=== PATIENT | male | born 1955 | race Caucasian/White ===

== ENCOUNTER → 2017-09-30 | Outpatient (REF) | payer MEDICAID, OTHER ==
[2017-09-30 12:47] LABS: ESTIMATED AVERAGE GLUCOSE 140 MG/DL (60-110); HEMOGLOBIN A1c 6.5 %
[2017-09-30 13:39] LABS: ALBUMIN 4.1 GM/DL (3.2-5.2); ALBUMIN/GLOBULIN RATIO 1.11 (1.00-1.93); ALKALINE PHOSPHATASE 111 U/L (45-117); ALT/SGPT 35 U/L (12-78); ANION GAP 7 MEQ/L (8-16); AST/SGOT 20 U/L (7-37); BILIRUBIN,TOTAL 0.4 MG/DL (0.2-1.0); BLOOD UREA NITROGEN 14 MG/DL (7-18); CALCIUM LEVEL 8.5 MG/DL (8.8-10.2); CARBON DIOXIDE LEVEL 26 MEQ/L (21-32); CHLORIDE LEVEL 106 MEQ/L (98-107); CHOLESTEROL LEVEL 200 MG/DL (<200); CHOLESTEROL RISK RATIO 6.896 (<5); CREATININE FOR GFR 0.88 MG/DL (0.70-1.30); GLOMERULAR FILTRATION RATE > 60.0 (>49); GLUCOSE, FASTING 115 MG/DL (70-100); HDL CHOLESTEROL 29 MG/DL (>40); LDL CHOLESTEROL 127.2 MG/DL (<100); NON-HDL-C 171 MG/DL; POTASSIUM SERUM 4.4 MEQ/L (3.5-5.1); SODIUM LEVEL 139 MEQ/L (136-145); TOTAL PROTEIN 7.8 GM/DL (6.4-8.2); TRIGLYCERIDES LEVEL 219 MG/DL (<150)
== END ==
LOC: M LAB REF 11:58
DX: E11.9 Type 2 diabetes mellitus without complications (principal)
CPT/HCPCS: 80053

== ENCOUNTER → 2017-10-01 | Outpatient (CLI) | payer OTHER | LOC: M RAD 15:39 | DX: R09.89 Other specified symptoms and signs involving the circulatory and respiratory systems (principal) | CPT/HCPCS: 93880 ==

== ENCOUNTER 2018-03-31 10:57 | Inpatient (IN) | payer OTHER ==
[2018-03-31 12:15] LABS: BASO # 0.1 10^3/uL (0.0-0.2); BASO % 0.7 % (0.0-1.0); EOS # 0.3 10^3/uL (0.0-0.50); EOS % 3.2 % (0.0-3.0); HEMOGLOBIN 14.4 g/dl (13.5-17.5); IMMATURE GRANULOCYTE % 0.3 % (0-3.0); LYMPH # 2.6 10^3/uL (1.5-4.5); LYMPH % 27.3 % (24.0-44.0); MEAN CORPUSCULAR HEMOGLOBIN 32.5 pg (27.0-33.0); MEAN CORPUSCULAR HGB CONC 34.3 g/dl (32.0-36.5); MEAN CORPUSCULAR VOLUME 94.8 fl (80.0-96.0); MONO # 0.5 10^3/uL (0.0-0.8); MONO % 5.3 % (0.0-5.0); NEUTROPHILS % 63.2 % (36.0-66.0); PLATELET COUNT, AUTOMATED 140 10^3/uL (150-450); RED BLOOD COUNT 4.43 10^6/uL (4.30-6.10); RED CELL DISTRIBUTION WIDTH 12.8 % (11.5-14.5); WHITE BLOOD COUNT 9.4 10^3/uL (4.0-10.0)
[2018-03-31 12:24] LABS: INR 0.99; PROTHROMBIN TIME 13.2 SECONDS (12.1-14.4)
[2018-03-31 12:25] LABS: PARTIAL THROMBOPLASTIN TIME 28.8 SECONDS (25.4-37.6)
[2018-03-31 12:36] LABS: ANION GAP 7 MEQ/L (8-16); BLOOD UREA NITROGEN 11 MG/DL (7-18); CALCIUM LEVEL 8.6 MG/DL (8.8-10.2); CARBON DIOXIDE LEVEL 27 MEQ/L (21-32); CHLORIDE LEVEL 108 MEQ/L (98-107); CPK CREATINE PHOSPHOKINASE 72 U/L (39-308); CREATININE FOR GFR 0.85 MG/DL (0.70-1.30); GLOMERULAR FILTRATION RATE > 60.0 (>49); GLUCOSE, FASTING 136 MG/DL (70-100); POTASSIUM SERUM 3.5 MEQ/L (3.5-5.1); SODIUM LEVEL 142 MEQ/L (136-145); TROPONIN I < 0.02 NG/ML (< 0.10)
[2018-03-31 12:37] LABS: CK-MB VALUE MASS 1.4 NG/ML (<3.6); MB/CK RELATIVE INDEX 1.94 (< OR =4)
[2018-03-31 14:38] LABS: BEDSIDE GLUCOSE 136 MG/DL (80-115)
[2018-03-31] MEDS: ASPIRIN 325 MG TAB PO (16:46)
[2018-03-31] MEDS ORDERED: GLUCOSE 4 GM CHEW TABLET PO (17:45)
[2018-03-31] MEDS ORDERED: DEXTROSE 50% 50 ML SYRINGE IV (17:45)
[2018-03-31] MEDS ORDERED: GLUCAGON FOR INJ 1 MG VIAL (J1610) SC (17:45)
[2018-03-31] MEDS: HumaLOG INSULIN (NovoLOG) PER UNIT SC (21:00)
[2018-03-31 21:09] LABS: BEDSIDE GLUCOSE 170 MG/DL (80-115)
[2018-03-31] MEDS: LEVEMIR (INSULIN DETEMIR) 1 UNITS/0.01ML SC (21:13)
[2018-03-31] MEDS: NAPROXEN 250 MG TAB PO (21:13)
[2018-03-31] MEDS: ATORVASTATIN 20 MG TAB PO (21:13)
[2018-04-01 06:52] LABS: BEDSIDE GLUCOSE 113 MG/DL (80-115)
[2018-04-01 07:24] LABS: HEMATOCRIT 43.4 % (42.0-52.0); HEMOGLOBIN 14.9 g/dl (13.5-17.5); MEAN CORPUSCULAR HEMOGLOBIN 33.1 pg (27.0-33.0); MEAN CORPUSCULAR HGB CONC 34.3 g/dl (32.0-36.5); MEAN CORPUSCULAR VOLUME 96.4 fl (80.0-96.0); PLATELET COUNT, AUTOMATED 135 10^3/uL (150-450); RED CELL DISTRIBUTION WIDTH 12.9 % (11.5-14.5); WHITE BLOOD COUNT 7.8 10^3/uL (4.0-10.0)
[2018-04-01 07:37] LABS: ESTIMATED AVERAGE GLUCOSE 143 MG/DL (60-110); HEMOGLOBIN A1c 6.6 %
[2018-04-01 07:50] LABS: ALBUMIN 3.4 GM/DL (3.2-5.2); ALBUMIN/GLOBULIN RATIO 0.94 (1.00-1.93); ALKALINE PHOSPHATASE 105 U/L (45-117); ALT/SGPT 30 U/L (12-78); ANION GAP 5 MEQ/L (8-16); AST/SGOT 16 U/L (7-37); BILIRUBIN,TOTAL 0.5 MG/DL (0.2-1.0); BLOOD UREA NITROGEN 14 MG/DL (7-18); CALCIUM LEVEL 8.4 MG/DL (8.8-10.2); CARBON DIOXIDE LEVEL 26 MEQ/L (21-32); CHLORIDE LEVEL 111 MEQ/L (98-107); CHOLESTEROL LEVEL 111 MG/DL (<200); CHOLESTEROL RISK RATIO 4.111 (<5); CREATININE FOR GFR 0.79 MG/DL (0.70-1.30); GLOMERULAR FILTRATION RATE > 60.0 (>49); GLUCOSE, FASTING 114 MG/DL (70-100); HDL CHOLESTEROL 27 MG/DL (>40); LDL CHOLESTEROL 51.8 MG/DL (<100); MAGNESIUM LEVEL 2.3 MG/DL (1.8-2.4); NON-HDL-C 84 MG/DL; POTASSIUM SERUM 3.9 MEQ/L (3.5-5.1); SODIUM LEVEL 142 MEQ/L (136-145); THYROID STIMULATING HORMONE 0.906 uIU/ML (0.358-3.740); TRIGLYCERIDES LEVEL 161 MG/DL (<150)
[2018-04-01] MEDS: NICOTINE 14 MG/24 HR TRANSDERMAL TD (08:16)
[2018-04-01] MEDS: HumaLOG INSULIN (NovoLOG) PER UNIT SC ×2 (08:16→12:00)
[2018-04-01] MEDS: ENOXAPARIN 40 MG/0.4 ML SYRINGE (J1650) SC (08:16)
[2018-04-01] MEDS: ASPIRIN 325 MG TAB PO (08:17)
[2018-04-01 10:25] LABS: HEPATITIS C VIRUS ABY INDEX 0.1 INDEX (<0.8)
[2018-04-01 12:04] LABS: BEDSIDE GLUCOSE 113 MG/DL (80-115)
[2018-04-01] MEDS ORDERED: ATORVASTATIN 20 MG TAB PO (21:00)
== END 2018-04-01 16:49 | disposition left against medical advice (07) | DRG 45 ==
LOC: M ED 10:57 → M ED INP 17:36
DX: I63.9 Cerebral infarction, unspecified (principal); E11.51 Type 2 diabetes mellitus with diabetic peripheral angiopathy without gangrene; F17.210 Nicotine dependence, cigarettes, uncomplicated; Z79.82 Long term (current) use of aspirin; Z79.4 Long term (current) use of insulin; Z88.0 Allergy status to penicillin; Z91.013 Allergy to seafood

== ENCOUNTER → 2018-04-06 | Outpatient (REF) | payer OTHER ==
[2018-04-06 18:57] LABS: ESTIMATED AVERAGE GLUCOSE 137 MG/DL (60-110); HEMOGLOBIN A1c 6.4 %
== END ==
LOC: M LAB REF 16:47
DX: E11.9 Type 2 diabetes mellitus without complications (principal)

== ENCOUNTER → 2018-11-08 | Outpatient (REF) | payer OTHER ==
[~2018-11-08] MED LIST: /QUET10TA OR; ASPI81TA3 PO; BUSP10TA2 OR; CRES20TA OR; INSULIN 70/30 SC; LISI5TAB OR; NOVO1INJ4 SC; PAXI10TA OR; PAXI30TA OR; TRAZ100T OR; januvia PO; levemir flexpen SUBQ
[2018-11-08 18:09] LABS: BASO # 0.1 10^3/uL (0.0-0.2); BASO % 0.9 % (0.0-1.0); EOS # 0.3 10^3/uL (0.0-0.50); EOS % 4.3 % (0.0-3.0); HEMATOCRIT 43.7 % (42.0-52.0); HEMOGLOBIN 14.8 g/dl (13.5-17.5); LYMPH # 2.4 10^3/uL (1.5-4.5); LYMPH % 36.3 % (24.0-44.0); MEAN CORPUSCULAR HGB CONC 33.9 g/dl (32.0-36.5); MEAN CORPUSCULAR VOLUME 97.5 fl (80.0-96.0); MONO # 0.4 10^3/uL (0.0-0.8); MONO % 6.6 % (0.0-5.0); NEUTROPHILS # 3.3 10^3/uL (1.8-7.7); NEUTROPHILS % 51.4 % (36.0-66.0); PLATELET COUNT, AUTOMATED 140 10^3/uL (150-450); RED BLOOD COUNT 4.48 10^6/uL (4.30-6.10); WHITE BLOOD COUNT 6.5 10^3/uL (4.0-10.0)
[2018-11-08 18:26] LABS: ALBUMIN 3.9 GM/DL (3.2-5.2); ALT/SGPT 58 U/L (12-78); BILIRUBIN,TOTAL 0.5 MG/DL (0.2-1.0); BLOOD UREA NITROGEN 8 MG/DL (7-18); CALCIUM LEVEL 8.8 MG/DL (8.8-10.2); CARBON DIOXIDE LEVEL 26 MEQ/L (21-32); CHLORIDE LEVEL 101 MEQ/L (98-107); CHOLESTEROL LEVEL 224 MG/DL (<200); CHOLESTEROL RISK RATIO 10.181 (<5); CREATININE FOR GFR 0.97 MG/DL (0.70-1.30); GLOMERULAR FILTRATION RATE > 60.0 (>49); GLUCOSE, FASTING 307 MG/DL (70-100); HDL CHOLESTEROL 22 MG/DL (>40); NON-HDL-C 202 MG/DL; POTASSIUM SERUM 4.1 MEQ/L (3.5-5.1); SODIUM LEVEL 135 MEQ/L (136-145); TOTAL PROTEIN 7.3 GM/DL (6.4-8.2); TRIGLYCERIDES LEVEL 451 MG/DL (<150)
[2018-11-08 18:27] LABS: TOTAL 25(OH) VITAMIN D 9.2 NG/ML (30.0-100.0)
[2018-11-08 18:55] LABS: HEMOGLOBIN A1c 8.1 %
== END ==
LOC: M LAB REF 17:08
PROVIDERS: ATTEND Nurse Practitioner Family
DX: E11.69 Type 2 diabetes mellitus with other specified complication (principal); E11.9 Type 2 diabetes mellitus without complications; Z13.9 Encounter for screening, unspecified; I10 Essential (primary) hypertension

== ENCOUNTER 2019-06-14 16:51 | Inpatient (IN) | payer MEDICARE, MEDICAID ==
[~2019-06-14] VITALS: Ht 172.7 cm; Wt 76.3 kg
[~2019-06-14 16:51] MED LIST changes: -/QUET10TA OR; +SERO1TAB OR
[2019-06-14] MEDS ORDERED: GABA-1171 PO (17:09)
[2019-06-14] MEDS ORDERED: TOPI25TA10 PO (17:09)
[2019-06-14] MEDS ORDERED: METF500T13 PO (17:09)
[2019-06-14] MEDS ORDERED: ACET-683 PO (17:09)
[2019-06-14] MEDS ORDERED: ATOR80TA59 PO (17:09)
--- NOTE | 2019-06-14 17:37 | REPVR ---
PROCEDURE INFORMATION: Exam: CT Head Without Contrast Exam date and time: 06/14/2019 5:25 PM Clinical history: 64 years old, male; Weakness, facial; Additional info: Left sided weakness TECHNIQUE: Imaging protocol: Computed tomography of the head without contrast. Radiation optimization: All CT scans at this facility use at least one of these dose optimization techniques: automated exposure control; mA and/or kV adjustment per patient size (includes targeted exams where dose is matched to clinical indication); or iterative reconstruction. COMPARISON: CT Head without contrast 03/31/2018 11:15 AM FINDINGS: Brain: Nonspecific hypodensities of the periventricular and deep subcortical white matter, most likely secondary to chronic small vessel ischemic change. No intracranial hemorrhage or extra-axial fluid collection. No evidence of mass effect or midline shift. Bernal-white matter differentiation is normal. Ventricles: Prominence of the ventricles and sulci, most likely attributed to parenchymal volume loss. Bones/joints: No acute osseus lesion or fracture. Sinuses: Unremarkable as visualized. Mastoid air cells: Unremarkable. Soft tissues: Unremarkable. IMPRESSION: 1. No acute intracranial pathology. ASPECTS score 10. 2. Other chronic findings, as above. Electronically signed by: Jaleel Kendrick On 06/14/2019 17:37:02 PM
[2019-06-14 18:32] LABS: BASO # 0.1 10^3/uL (0.0-0.2); BASO % 0.6 % (0.0-1.0); EOS # 0.2 10^3/uL (0.0-0.5); EOS % 2.9 % (0.0-3.0); HEMATOCRIT 44.8 % (42.0-52.0); HEMOGLOBIN 15.3 g/dl (13.5-17.5); LYMPH # 2.9 10^3/uL (1.5-5.0); LYMPH % 34.3 % (24.0-44.0); MEAN CORPUSCULAR HEMOGLOBIN 32.3 pg (27.0-33.0); MEAN CORPUSCULAR HGB CONC 34.2 g/dl (32.0-36.5); MEAN CORPUSCULAR VOLUME 94.7 fl (80.0-96.0); MONO # 0.5 10^3/uL (0.0-0.8); MONO % 5.8 % (0.0-5.0); NEUTROPHILS # 4.6 10^3/uL (1.5-8.5); NEUTROPHILS % 55.9 % (36.0-66.0); PLATELET COUNT, AUTOMATED 128 10^3/uL (150-450); RED BLOOD COUNT 4.73 10^6/uL (4.30-6.10); WHITE BLOOD COUNT 8.3 10^3/uL (4.0-10.0)
[2019-06-14 18:41] LABS: INR 1.01
[2019-06-14 18:42] LABS: PARTIAL THROMBOPLASTIN TIME 27.8 SECONDS (25.0-38.4)
[2019-06-14] MEDS ORDERED: ANTIBIOTIC (18:43)
[2019-06-14] MEDS ORDERED: ECOT81TA5 PO (18:43)
[2019-06-14 18:53] LABS: BLOOD UREA NITROGEN 20 MG/DL (7-18); CARBON DIOXIDE LEVEL 25 MEQ/L (21-32); CHLORIDE LEVEL 103 MEQ/L (98-107); CREATININE FOR GFR 1.01 MG/DL (0.70-1.30); GLOMERULAR FILTRATION RATE > 60.0 (>49); GLUCOSE, FASTING 331 MG/DL (70-100); POTASSIUM SERUM 3.9 MEQ/L (3.5-5.1); SODIUM LEVEL 134 MEQ/L (136-145)
[2019-06-14 18:59] LABS: HEMOGLOBIN A1c 9.3 %
--- NOTE | 2019-06-14 19:02 | REP ---
Chest x-ray: Portable single view. History: CVA. Comparison chest x-ray: March 31, 2018. Findings: The lungs are well inflated and clear. Pleural angles are sharp. Heart size is normal. There is a granulomatous calcification in the right upper lobe. Impression: No active disease. Electronically Signed by Mikey Sykes MD 06/14/2019 06:53 P
[2019-06-14] MEDS ORDERED: ACETAMINOPHEN TAB 650MG DOSE (2X325MG) PO PRN (19:15)
[2019-06-14 19:53] LABS: CHOLESTEROL LEVEL 164 MG/DL (<200); CHOLESTEROL RISK RATIO 7.454 (<5); HDL CHOLESTEROL 22 MG/DL (>40); NON-HDL-C 142 MG/DL; TRIGLYCERIDES LEVEL 612 MG/DL (<150)
--- NOTE | 2019-06-14 20:34 | REPVR ---
PROCEDURE INFORMATION: Exam: MR Head Without Contrast Exam date and time: 06/14/2019 8:23 PM Clinical history: 64 years old, male; Weakness, extremity; Patient HX: Numbness in the left side, PT personal HX of prior strokes; Additional info: CVA TECHNIQUE: Imaging protocol: MR of the head without contrast. COMPARISON: MRI-Brain without Contrast 03/31/2018 2:47 PM FINDINGS: Brain: Small focus of restricted diffusion with associated FLAIR hyperintensity within the right superior frontoparietal region. Nonspecific T2/FLAIR hyperintensities of the periventricular and deep subcortical white matter, most likely secondary to chronic small vessel ischemic change. No intracranial hemorrhage or extra-axial fluid collection. No evidence of mass effect or midline shift. Ventricles: Prominence of the ventricles and sulci, likely attributed to parenchymal volume loss. Bones/joints: Unremarkable. Soft tissues: Unremarkable. Sinuses: Unremarkable. Mastoid air cells: Chronic partial opacification of inferior right mastoid air cells. Orbits: Unremarkable. IMPRESSION: 1. Small focus of restricted diffusion with associated FLAIR hyperintensity within the right superior frontoparietal region, concerning for acute to early subacute infarct 2. Other chronic findings, as above. Electronically signed by: Jaleel Kendrick On 06/14/2019 20:34:16 PM
[2019-06-14] MEDS ORDERED: GLUCOSE 4 GM CHEW TABLET PO PRN (21:00)
[2019-06-14] MEDS ORDERED: DEXTROSE 50% 50 ML SYRINGE IV PRN (21:00)
[2019-06-14] MEDS ORDERED: CLOPIDOGREL 75 MG TAB PO ONE (21:00)
[2019-06-14] MEDS: VARENICLINE 1 MG TABLET PO SCH (21:00)
[2019-06-14] MEDS ORDERED: GLUCAGON FOR INJ 1 MG VIAL (J1610) SC PRN (21:00)
[2019-06-14] MEDS: HumaLOG INSULIN (NovoLOG) PER UNIT SC SCH (21:37)
[2019-06-14] MEDS ORDERED: NICOTINE POLACRILEX 2 MG GUM PO ONE (21:45)
[2019-06-14] MEDS ORDERED: NICOTINE POLACRILEX 2 MG GUM PO PRN (21:45)
[2019-06-14] MEDS ORDERED: CALCIUM CARBONATE 500 MG CHEW U/D PO PRN (21:45)
[2019-06-14] MEDS ORDERED: CALCIUM CARBONATE 500 MG CHEW U/D PO ONE (21:45)
[2019-06-14 21:54] VITALS: BP 148/81
[2019-06-14] MEDS ORDERED: ATORVASTATIN 20 MG TAB PO ONE (22:15)
[2019-06-14] MEDS: NICOTINE 21MG/24HR 1 EA TRANSDERMAL TD SCH (22:23)
[2019-06-14] MEDS: LEVEMIR (INSULIN DETEMIR) 1 UNITS/0.01ML SC SCH (22:30)
[2019-06-15] VITALS (7 sets, daily range): BP systolic 120–158; BP diastolic 56–92
[2019-06-15 00:40] LABS: BLOOD UREA NITROGEN 19 MG/DL (7-18); CARBON DIOXIDE LEVEL 25 MEQ/L (21-32); CHLORIDE LEVEL 103 MEQ/L (98-107); CREATININE FOR GFR 0.93 MG/DL (0.70-1.30); GLOMERULAR FILTRATION RATE > 60.0 (>49); GLUCOSE, FASTING 188 MG/DL (70-100); POTASSIUM SERUM 3.7 MEQ/L (3.5-5.1); SODIUM LEVEL 135 MEQ/L (136-145)
[2019-06-15] MEDS: D5W/0.45% SODIUM CHLORIDE 1,000 ML IV SCH ×2 (01:11→15:20)
--- NOTE | 2019-06-15 06:05 | HPE ---
DATE OF ADMISSION: 06/14/2019 CHIEF COMPLAINT: Left leg numbness and weakness. PRIMARY CARE PHYSICIAN: [facility], Dr. Luo. HISTORY OF PRESENT ILLNESS (HPI): This is a 64-year-old active smoker with 90 pack year history of smoking, still smoking two packs a day, hypertension, diabetes, previous right parietal lobe cerebral vascular accident (CVA) noncompliant with his aspirin and Lipitor for the past two weeks since he ran out of medications and had been noncompliant with his neurology appointment presents to the emergency room with a two day history of left lower extremity weakness. The patient woke up feeling that his left leg was very heavy and he was dragging it to go to the bathroom. He ignored it and decided to sleep it off. It progressed on to now involve the left arm which often dropped, unable to lift it independently. He also noticed significant numbness of the left side. He is right handed by nature and was still able to do activities of daily living (ADLs), bathe himself, get dressed and walk without any assistance hoping to have everything go away. He has been sleeping a lot for the past two days and noticed that this has not gotten better. Today he noted that the left arm was quite numb. He called out to his girlfriend who then helped him come to the emergency room. The patient has not been taking his aspirin for the past two weeks since his medications had run out. No medications were taken at home. He otherwise did not have any facial drooping. According to the girlfriend his speech was normal. He is able to understand but at times would look at her for a few minutes and ask her what. Sine the previous stroke the patient states that his memory has not been the same, he is often times forgetful. He has forgotten his neurology appointment and was unable to followup at [facility] from the previous strokes. He does have a history of central canal stenosis in the L2-3, L3-4 area but denies any shooting pain at this time. He denies any usual weakness of that leg and has been noting his left leg dragging only for the past two days. In the emergency room (ER) he was given aspirin. CT of the head was negative. EKG shows sinus rhythm. MRI of the brain shows a right frontoparietal acute to early subacute infarct. The patient was given aspirin, Plavix and Lipitor. The patient otherwise denies any fever or chills, changes in appetite, blurred vision, changes in vision. He has had some difficulty understanding at times and has had some memory issues. He denies any rhinorrhea, vertigo. He denies any sore throat, complains of a little bit of reflux and some heartburn. No chest pain, pressure, tightness, lightheadedness, palpitations or dizziness. He denies any nausea or vomiting, abdominal pain. Denies any dysuria, urgency or frequency. No prior history of anxiety or depression. The patient is being admitted for a right acute frontoparietal CVA. PAST MEDICAL HISTORY: 1. Diabetes. 2. Hypertension. 3. Hypercholesterolemia. 4. Right parietal CVA with memory issues. 5. Active tobacco abuse. 6. Diabetic neuropathy. PAST SURGICAL HISTORY: Back surgery. HOME MEDICATIONS: The patient has not taken medications for the past two weeks. - aspirin 81 mg daily - metformin 500 mg twice a day - Tylenol 1000 mg every 6 hours as needed for pain or fever - Lipitor 80 mg daily - gabapentin 100 mg daily ALLERGIES: PENICILLIN and SHELLFISH causing rash. SOCIAL HISTORY: Has a significant other who is a health care proxy. He is FULL CODE. Trial of intubation and cardiopulmonary resuscitation (CPR). The patient continues to smoke cigarettes, previously smoked three packs per day for about 30 years, down to two packs a day now. He denies any alcohol use. He uses marijuana daily. FAMILY HISTORY: Both parents are . No history of hypertension, diabetes, hypercholesterolemia, heart disease or strokes. No clotting disorders in the family. The patient is currently on disability. REVIEW OF SYSTEMS: As per HPI, 12-point system otherwise negative. PHYSICAL EXAMINATION: VITAL SIGNS: Temperature 98.5, pulse 88, respiratory 16, blood pressure 197/86, 95% on room air. GENERAL: The patient person, place and time answering questions appropriately. HEENT: Face is symmetric, no facial drooping. Pupils equal, round, and reactive to light, extraocular muscles are intact. Language comprehension, repetition are intact. Tongue is midline. No pronator drift. No facial asymmetry. EXTREMITIES: The patient has 5/5 strength bilaterally upper and lower extremities. The patient has no sensory disturbance at this time but he states that on arrival to the ER he had significant numbness of the left arm and two days ago he had significant weakness of the left side. Vcmtrx-kz-kghi testing has no dysmetria, Deep tendon reflexes (DTRs) are intact with slight increase in the left arm and lower extremity. Right has negative Babinski, left has positive Babinski. EKG: Sinus rhythm. LABORATORY DATA: White count 8.3, hemoglobin 50, hematocrit 44, platelet count 128. Sodium 134, potassium 3.9, chloride 103, bicarbonate 25, BUN 20, creatinine 1.01, glucose 331, A1c 9.3, glucose 220, calcium 9, triglycerides 612, total cholesterol 164, HDL 142. INR 1.01. IMAGING STUDIES: CT of the head 06/14/2019: No acute intracranial pathology, other chronic findings. MRI of the brain shows small focus of restricted effusion with associated flare hyperintensity within the right superior frontoparietal region. Small focus concerning for acute to early subacute infarct, other chronic findings. Chronic partial opacification of the inferior right mastoid air cells. No evidence of mass effect or midline shift. Chest x-ray: No active disease. ASSESSMENT AND PLAN: This is a 64-year-old noncompliant patient who continues to smoke cigarettes, missed appointments with neurology followup for previous cerebral vascular accident (CVA), has not taken his medications for two weeks with diabetes, hypercholesterolemia, hypertension, right parietal CVA in the past, actively smoking, presents to the emergency room with a two day history of left lower extremity weakness, dragging his feet at home and new left arm numbness today prompting him to come to the emergency room (ER). He was found to have an early acute or subacute right frontal parietal CVA and admitted for further evaluation and treatment for two midnights as an inpatient. 1. Acute right frontoparietal CVA. The patient will be admitted to the telemetry unit. Neurology-checks every four hourly. He has been given aspirin 81 mg and Plavix 75 mg this evening as well as Lipitor 80 mg. A lipid panel has been reviewed. Per Dr. Banks the patient should proceed with transesophageal echocardiogram with bubble study and a hypercoagulable evaluation. Tobacco cessation counseling has been provided at the bedside. The patient agrees to nicotine replacement therapy and will be given Chantix nicotine patch and nicotine gum. Dr. Dejesus has been contacted to schedule the transesophageal echocardiogram which will be done tomorrow. He is to be kept nothing by mouth (NPO) after midnight with medications only, with sips of water. Defer to Dr. Banks whether we should repeat carotid Dopplers. He had these done previously which showed 15-49% blockage. We will also permit blood pressure for the next 48 hours to be at 140-180 and then will be normalized to 120 subsequently. MRA of the head and neck will be performed as well and neuro-checks overnight. 2. Uncontrolled hypertension. Permissive hypertension for the fist 48 hours of his acute CVA with pressure goal of 140-180 in the next 24-48 hours and then subsequently normalize to 120 after 48 hours due to the decreased risk of extending the infarct. If negative findings on transesophageal echocardiogram, patient may benefit from implantable loop recorder and referral to cardiology, Dr. Dejesus regarding cryptogenic stroke to a loud atrial fibrillation, atrial flutter as an outpatient. 3. Active smoking with history of 90-pack year smoking. Tobacco cessation counseling has been provided at the bedside. Active plan would be to have his significant other go into home and throw away all cigarettes both in his car and in his residence. He is to call his significant other if he feels that he will buy cigarettes. A pill box will be provided for him to continue his nicotine gum as needed at home and Chantix. 4. Dyslipidemia. Continue with Lipitor. Check lipid panel and liver function tests. Monitor for myalgias. 5. Deep venous thrombosis (DVT) prophylaxis with Lovenox. 6. Diet: No added salt. Consistent carbohydrate diet. The patient is placed on Levemir insulin during the hospital stay. Hyperglycemic protocol and finger sticks. Check A1c in the morning. CODE STATUS: The patient is a FULL CODE. He would like cardiopulmonary resuscitation (CPR)and a trial of intubation. Health care proxy has been designated as his significant other. BECKY
--- NOTE | 2019-06-15 06:59 | ECGEPIP ---
[facility] - ED Test Date: 2019-06-14 Pat Name: HAJA KEEN Department: Room: [place] [address] Gender: Male Lead Sales Consultant: TC : 1955 Requested By: Julian Polk Order Number: [id number] Reading MD: Paula Singleton Measurements Intervals [place] Rate: 67 P: 65 MI: 203 QRS: -42 QRSD: 98 T: 46 QT: 367 QTc: 390 Interpretive Statements SINUS RHYTHM MARKED LEFT AXIS DEVIATION POSSIBLE RIGHT VENTRICULAR CONDUCTION DELAY NSTTW abnormalities SIMILAR 03/31/18 Electronically Signed on 06-15-2019 6:58:50 EDT by Paula Singleton
[2019-06-15 07:11] LABS: HEMOGLOBIN A1c 9.2 %
[2019-06-15 07:21] LABS: ALBUMIN 3.9 GM/DL (3.2-5.2); BILIRUBIN,DIRECT 0.1 MG/DL (0.0-0.2); BILIRUBIN,TOTAL 0.6 MG/DL (0.2-1.0); TOTAL PROTEIN 7.7 GM/DL (6.4-8.2)
[2019-06-15] MEDS: HumaLOG INSULIN (NovoLOG) PER UNIT SC SCH ×4 (07:30→20:56)
[2019-06-15] MEDS ORDERED: PROHANCE 279.3MG/ML 15ML VIAL (A9576) As Ordered ONE (08:47)
[2019-06-15] MEDS ORDERED: ENOXAPARIN 40 MG/0.4 ML SYRINGE (J1650) SC SCH (09:00)
[2019-06-15] MEDS ORDERED: GABAPENTIN 100 MG CAP PO SCH (09:00)
[2019-06-15] MEDS ORDERED: CLOPIDOGREL 75 MG TAB PO SCH (09:00)
[2019-06-15] MEDS ORDERED: ATORVASTATIN 20 MG TAB PO SCH (09:00)
--- NOTE | 2019-06-15 09:44 | REP ---
Intracranial MRA: 06/15/2019. Indication: Stroke. Comparison: None. Technique: Axial 3-D [id number] imaging of the intracranial circulation was performed with rotational 3-D images provided. Findings: There is no intracranial high-grade stenosis or vessel occlusion. There is moderate narrowing of the right cavernous ICA. There is no aneurysm or AVM. Impression: No intracranial high-grade stenosis or vessel occlusion. Moderate atherosclerotic narrowing of the right cavernous ICA. Electronically Signed by Kike Enriquez DO 06/15/2019 09:36 A
--- NOTE | 2019-06-15 10:42 | REP ---
Extracranial MRA: 06/15/2019. Indication: Stroke. Comparison: None. Technique: 2-D [id number] imaging of the extracranial carotid and vertebral arteries were performed. Findings: There is hemodynamically significant high-grade stenosis of the proximal right ICA just beyond the bifurcation according to NASCET criteria with the stenosis greater than 90%. There is no hemodynamically significant left ICA stenosis by NASCET criteria. There is moderate narrowing of the proximal left ICA just beyond the bifurcation with the stenosis measuring approximately 40%. The vertebral arteries are patent. The great vessels originate in expected anatomic fashion from the aortic arch. Impression: Hemodynamically significant proximal right ICA stenosis by NASCET criteria. No hemodynamically significant left ICA stenosis. Electronically Signed by Kike Enriquez DO 06/15/2019 10:34 A
--- NOTE | 2019-06-15 10:48 | IPNPDOC ---
Subjective Date Seen The patient was seen on 06/15/19. Subjective Chief Complaint/HPI Patient comfortable, in no apparent distress. Offers no new complaints General: Denies: ROS Unobtainable, Chills, Night Sweats, Fatigue, Malaise, Normal Appetite, Other Symptoms Constitutional: Denies: Chills, Fever, Malaise, Night Sweats, Weakness, Fatigue, Weight Loss, Lethargy, Other Eyes: Denies: Pain, Vision change, Conjunctivae inflammation, Eyelid inflammation, Redness, Other ENT: Denies: Head Aches, Ear Pain, Dysphagia, Sinus Congestion, Post Nasal Drip, Sore Throat, Epistaxis, Other Symptoms Skin: Denies: Rash, Lesions, Jaundice, Bruising, Itching, Dry, Breakdown, Nail Changes, Other Pulmonary: Denies: Dyspnea, Cough, Pleuritic Chest Pain, Other Symptoms Cardiovascular: Denies: Chest Pain, Palpitations, Orthopnea, Paroxysmal Noc. Dyspnea, Edema, Lt Headedness, Other Symptoms Gastrointestinal: Denies: Nausea, Vomiting, Abdominal Pain, Diarrhea, Con stipation, Melena, Hematochezia, Other Symptoms Musculoskeletal: Denies: Neck Pain, Back Pain, Shoulder Pain, Arm Pain, Hand Pain, Leg Pain, Foot Pain, Joint Pain, Muscle Pain, Spasms, Other Symptoms Neurological: Denies: Weakness, Numbness, Incoordination, Change in speech, Confusion, Seizures, Other Symptoms Objective Physical Examination General Exam: Positive: Alert, Cooperative Eye Exam: Positive: PERRLA, Conjunctiva & lids normal ENT Exam: Positive: Atraumatic, Mucous membr. moist/pink Neck Exam: Positive: Supple Chest Exam: Positive: Clear to auscultation, Normal air movement Heart Exam: Positive: Rate Normal, Normal S1, Normal S2 Abdomen Exam: Positive: Normal bowel sounds, Soft Extremity Exam: Positive: Normal pulses Skin Exam: Positive: Nl turgor and temperature Assessment /Plan Problems (1) CVA (cerebral vascular accident) Status: Acute Problem Text: Acute right frontoparietal CVA Neurology check every 4 hours Continue telemetry Continue aspirin 81 mg by mouth daily and Plavix 75 mg by mouth daily Continue Lipitor 80 mg by mouth daily Scheduled for SARA today MRI of the neck and brain done, report pending Neurology consult with Dr. Banks pending (2) Uncontrolled hypertension Status: Acute Problem Text: Uncontrolled hypertension Will keep systolic blood pressure between 140-180 48 hours Then we will adjust the medication dose to bring it within normal range Further cardiac workup as an outpatient with (3) Smoker Status: Chronic Problem Text: Active smoking with history of 90-pack year smoking. Tobacco cessation counseling has been provided at the bedside. Active plan would be to have his significant other go into home and throw away all cigarettes both in his car and in his residence. He is to call his significant other if he feels that he will buy cigarettes. A pill box will be provided for him to continue his nicotine gum as needed at home and Chantix. (4) Hyperlipemia Status: Chronic Problem Text: Continue Lipitor as per orders Plan/VTE VTE Prophylaxis Ordered?: Yes VS, I&O, 24H, Fishbone Vital Signs/I&O Vital Signs Date Time Temp Pulse Resp B/P (MAP) Pulse Ox O2 Delivery O2 Flow Rate FiO2 06/15/19 08:00 98.0 84 20 135/88 (104) 97 Room Air I&O- Last 24 Hours up to 6 AM 06/15/19 06:00 Intake Total 735 ml Output Total 550 ml Balance 185 ml Laboratory Data 24H LABS Laboratory Tests 2 06/14/19 17:39: Estimated Mean Plasma Glucose 220H, Hemoglobin A1c 9.3 06/14/19 18:09: Immature Granulocyte % (Auto) 0.5, Neutrophils (%) (Auto) 55.9, Lymphocytes (%) (Auto) 34.3, Monocytes (%) (Auto) 5.8H, Eosinophils (%) (Auto) 2.9, Basophils (%) (Auto) 0.6, Neutrophils # (Auto) 4.6, Lymphocytes # (Auto) 2.9, Monocytes # (Auto) 0.5, Eosinophils # (Auto) 0.2, Basophils # (Auto) 0.1, Nucleated Red Blood Cells % (auto) 0.0, Prothrombin Time 13.0, Prothromb Time International Ratio 1.01, Activated Partial Thromboplast Time 27.8, Anion Gap 6L, Glomerular Filtration Rate > 60.0, Calcium Level 9.0, Magnesium Level 2.0, Triglycerides Level 612H, Total Cholesterol 164, LDL Cholesterol , Non-HDL Cholesterol (LDL + VLDL) 142, Total HDL Cholesterol 22L, Cholesterol/HDL Ratio 7.454H, Thyroid Stimulating Hormone (TSH) 3.620 06/14/19 21:12: Bedside Glucose (Misc Panel) 247H 06/14/19 22:28: Bedside Glucose (Misc Panel) 238H 06/14/19 23:57: Anion Gap 7L, Glomerular Filtration Rate > 60.0, Calcium Level 9.0 06/15/19 01:08: Bedside Glucose (Misc Panel) 187H 06/15/19 06:01: Erythrocyte Sedimentation Rate 6, Estimated Mean Plasma Glucose 217H, Hemoglobin A1c 9.2, Total Bilirubin 0.6, Direct Bilirubin 0.1, Aspartate Amino Transf (AST/SGOT) 25, Alanine Aminotransferase (ALT/SGPT) 34, Alkaline Phosphatase 153H, Total Protein 7.7, Albumin 3.9, Albumin/Globulin Ratio 1.03, Rheumatoid Factor < 10.0 CBC/BMP Laboratory Tests 06/14/19 18:09 06/14/19 23:57 ANAMIKA BRAUN MD Jun 15, 2019 10:47
[2019-06-15] MEDS: VARENICLINE 1 MG TABLET PO SCH (10:50)
[2019-06-15] MEDS ORDERED: MIDAZOLAM INJ 2 MG/2 ML VIAL (J2250) As Ordered ONE (14:42)
--- NOTE | 2019-06-15 16:53 | ECGEPIP ---
[facility] Test Date: 2019-06-14 Pat Name: HAJA KEEN Department: Room: [place] [address] Gender: Male Homeopathic Doctor: ESTEPHANIA : 1955 Requested By: MEMO DAMON Order Number: [id number] Reading MD: Zeb Dejesus Measurements Intervals [place] Rate: 72 P: 64 MN: 214 QRS: -42 QRSD: 91 T: 50 QT: 361 QTc: 396 Interpretive Statements SINUS RHYTHM WITH FIRST DEGREE AV BLOCK MARKED LEFT AXIS DEVIATION No significant change compared with 06/14/2019 at 1847 hrs. Electronically Signed on 06-15-2019 16:53:49 EDT by Zeb Dejesus
--- NOTE | 2019-06-15 17:46 | T-ECHO ---
DATE OF PROCEDURE: 06/15/2019 REFERRING PHYSICIAN: Dr. Es Spears INDICATION: Acute stroke. PREPROCEDURE DIAGNOSIS: Acute stroke. POSTPROCEDURE DIAGNOSIS: Acute stroke, patent foramen ovale. FINDINGS: Patent foramen ovale with positive bubble study. PROCEDURE PERFORMED BY: Zeb Dejesus MD COLD WATER MACHINE OPERATOR: None. INTRAVENOUS (IV) SEDATION: Midazolam 3 mg IV. COMPLICATIONS: None. DESCRIPTION OF PROCEDURE: Procedure description: Rhythm was sinus. Patient received topical Cetacaine spray to the back of the pharynx. He received a total of 3 mg of Midazolam IV for IV sedation. Patient tolerated the procedure well without any immediate complications. Esophageal intubation was accomplished without difficulty using a Ralph three-dimensional transesophageal echocardiogram probe. The left and right ventricles appeared normal in size and systolic function overall however epigastric views were moderately technically difficult. Atrial septum was suspicious for patent foramen ovale. Patent foramen ovale was confirmed with positive bubble shunting from right atrium to left atrium with Valsalva maneuver release with a moderate amount of bubble contrast crossing over. No mass or thrombi were seen within the atrial appendages. Pulmonary venous connections to the left atrium were normal. Normal pulse wave Doppler in the left upper pulmonary vein. Aortic valve was three-cuspid and displayed mild focal thickening and focal calcific deposits. No aortic stenosis or regurgitation. Mitral leaflets were structurally function normal and without mitral regurgitation. Tricuspid leaflets were normal. No tricuspid regurgitation was detected. Pulmonic valve was normal with trace pulmonic regurgitation. No pericardial effusion. The aortic arch and descending thoracic aorta showed patchy areas of mild atherosclerotic plaque. CONCLUSIONS: 1. Patent foramen ovale with positive bubble study showing intra-atrial shunting from right atrium to left atrium via the PFO with Valsalva maneuver. 2. Mild aortic valve sclerosis of a three-cuspid aortic valve. No aortic regurgitation. 3. Mild atherosclerotic plaque in the distal aortic arch and descending thoracic aorta. No mobile components. 4. Normal left ventricle systolic function.
[2019-06-15] MEDS: NICOTINE 21MG/24HR 1 EA TRANSDERMAL TD SCH (21:02)
[2019-06-15] MEDS: LEVEMIR (INSULIN DETEMIR) 1 UNITS/0.01ML SC SCH (21:03)
--- NOTE | 2019-06-16 02:03 | IPNPDOC ---
Text Note Date of Service The patient was seen on 05/18/19. 06/15/2019 NOTE I was alerted that patient was requesting to leave AMA. Upon arrival to patient's room. Patient was getting dressed, stating that he no longer wants to stay here, and that he was tired of the treatment that he was receiving here. He refused to sign the AMA paperwork, and refused to allow nursing staff to remove his IV's prior to leaving. A code 25 was called because patient attempted to leave the hospital with IVs in place. We attempted to explain to patient that he could not leave the hospital with IVs intact, patient repeatedly screamed show me a policy that states "I cannot leave with my IVs in place". He then started to pace the hallways looking for an exit. Once reinforcement's arrived, patient continued to be verbally abusive, and demanded to leave the hospital. After a few minutes of redirecting. He finally consented to have his IVs removed. Promptly after the removal of his IVs patient walked off the floor. VS,Fishbone, I+O VS, Fishbone, I+O Vital Signs Date Time Temp Pulse Resp B/P (MAP) Pulse Ox O2 Delivery O2 Flow Rate FiO2 06/15/19 20:00 98.5 79 18 136/72 (93) 97 Room Air 06/15/19 15:30 2 I&O- Last 24 Hours up to 6 AM 06/16/19 06:00 Intake Total 240 ml Output Total 1025 ml Balance -785 ml GME ATTESTATION GME ATTESTATION My faculty preceptor for this patient encounter was physically present during the encounter and was fully available. All aspects of the patient interview, examination, medical decision making process, and medical care plan development were reviewed and approved by the faculty preceptor. The faculty preceptor is aware and concurs with the plan as stated in the body of this note and will attest to such by his/her cosignature. MEMO DAMON DO Jun 16, 2019 02:03 KAYLEY HARDY MD Jun 16, 2019 04:38
--- NOTE | 2019-06-16 08:26 | CR ---
DATE OF CONSULTATION: 06/15/2019 REFERRING PHYSICIAN: Dr. Es Spears REASON FOR CONSULTATION: Left leg numbness and weakness. HISTORY OF PRESENT ILLNESS: Harvey Trinh is a 64-year-old man with a 90 pack-year history of smoking and still smoking two packs per day, hypertension, diabetes, and noncompliance with medications who presented at [facility] due to new-onset left leg weakness, numbness and dragging his left leg while walking. He felt numbness and tingling of the left arm as well. There was no problem with his speech or face. It started two days ago. He started feeling his left leg was heavy and he was dragging his left leg. He has history of headaches on a daily basis for the last 1 year. He ws at [facility] in March 2018 when he had an acute stroke. He left against medical advice. He had another stroke within a couple of days and went to [facility] where he stayed for 6 days. He states that they did a procedure in which the doctor went through his groin and cleaned up his right carotid artery. I have no reports or notes for review. He states that he did not take his medications after he was discharged from [facility]. He has not taken his aspirin for last 1 year. He denies any neck or back pain. He denies dysphagia, dysarthria, diplopia, urinary incontinence, falls or loss of consciousness. DIAGNOSTIC STUDIES: His MRI scan of brain was reviewed and showed a small right frontal and parietal acute-subacute ischemic stroke. MRA of brain showed moderate right internal carotid artery stenosis intracranially. MRA of the neck showed 90% stenosis of right internal carotid artery in the neck. His transesophageal echocardiogram showed possible patent foramen ovale (PFO). PAST MEDICAL HISTORY: Diabetes, hypertension, dyslipidemia, tobacco abuse, diabetic neuropathy stroke in 2018 for which he was admitted at [facility] and [facility]. HOME MEDICATIONS: None, but the patient was supposed to be on aspirin, Lipitor, metformin, and gabapentin. ALLERGIES: - PENICILLIN - SHELLFISH SOCIAL HISTORY: Continues to smoke two packs per day. He used to smoke three packs per day. FAMILY HISTORY: His parents are . There is no family history of stroke or heart disease. REVIEW OF SYSTEMS: All systems were reviewed and found to be noncontributory except as mentioned in history of present illness. PHYSICAL EXAMINATION: Temperature 98.1, pulse 77, respiratory rate 19, blood pressure 148/92. Heart: Regular rate and rhythm. Lungs: Clear to auscultation. Abdomen: Soft, nontender, nondistended. No pedal edema. No musculoskeletal abnormalities. No rash. No signs of meningeal irritation. The patient is awake, alert, oriented to place, person and time. Normal speech, comprehension and repetition. Extraocular muscles are intact. No facial weakness. Tongue and uvula are midline. 5/5 strength in all four extremities. Deep tendon flexes 2+ throughout. Normal sensation throughout. Gait is normal. No visual field deficit. Recent and distant memory is intact. No dysmetria. ASSESSMENT: 1. Right frontal and parietal small acute-subacute ischemic stroke. 2. History of right parietal stroke in 2018. 3. Medical noncompliance and tobacco abuse. 4. Dyslipidemia and diabetes. 5 90% right internal carotid artery stenosis. 6. Possible PFO. PLAN: 1. The patient should be seen by vascular surgery for right carotid endarterectomy. 2. Aspirin 81 mg by mouth daily and Plavix 75 mg by mouth daily. 3. Lipitor 80 mg by mouth daily. 4. Consult cardiology for his PFO to see if they will recommend closure of PFO versus medical management. 5. Follow with our office in 2-4 weeks after hospital discharge. 6. He must quit smoking.
[2019-06-16 14:09] LABS: ANTINUCLEAR ANTIBODIES DIRECT Negative (Negative)
== END 2019-06-15 22:31 | disposition left against medical advice (07) | DRG 65 ==
LOC: M ED 16:51 → M ED INP 19:06 → M PCU 22:13
PROVIDERS: ADMIT General Practice; ATTEND General Practice
PROC: B246ZZ4 Ultrasonography of Right and Left Heart, Transesophageal (ICD-10-PCS; principal; 2019-06-15 14:30)
DX: I63.521 Cerebral infarction due to unspecified occlusion or stenosis of right anterior cerebral artery (principal); Q21.1 Atrial septal defect; F17.210 Nicotine dependence, cigarettes, uncomplicated; I10 Essential (primary) hypertension; I65.21 Occlusion and stenosis of right carotid artery; E11.40 Type 2 diabetes mellitus with diabetic neuropathy, unspecified; Z91.14 Patient's other noncompliance with medication regimen; E78.00 Pure hypercholesterolemia, unspecified; I69.311 Memory deficit following cerebral infarction; Z88.0 Allergy status to penicillin; Z91.013 Allergy to seafood; Z79.899 Other long term (current) drug therapy

== ENCOUNTER → 2019-06-20 | Outpatient (REF) | payer MEDICARE, MEDICAID ==
[~2019-06-20] MED LIST changes: +ACET-683 PO; +ANTIBIOTIC; +ATOR80TA59 PO; +ECOT81TA5 PO; +GABA-1171 PO; +METF500T13 PO; +TOPI25TA10 PO
[2019-06-20 16:02] LABS: BASO # 0.1 10^3/uL (0.0-0.2); BASO % 0.8 % (0.0-1.0); EOS # 0.3 10^3/uL (0.0-0.5); EOS % 3.7 % (0.0-3.0); HEMATOCRIT 43.7 % (42.0-52.0); HEMOGLOBIN 14.7 g/dl (13.5-17.5); LYMPH # 2.8 10^3/uL (1.5-5.0); LYMPH % 35.6 % (24.0-44.0); MEAN CORPUSCULAR HEMOGLOBIN 32.5 pg (27.0-33.0); MEAN CORPUSCULAR HGB CONC 33.6 g/dl (32.0-36.5); MEAN CORPUSCULAR VOLUME 96.7 fl (80.0-96.0); MONO # 0.5 10^3/uL (0.0-0.8); MONO % 6.6 % (0.0-5.0); NEUTROPHILS # 4.2 10^3/uL (1.5-8.5); NEUTROPHILS % 53.2 % (36.0-66.0); PLATELET COUNT, AUTOMATED 137 10^3/uL (150-450); RED BLOOD COUNT 4.52 10^6/uL (4.30-6.10); WHITE BLOOD COUNT 7.9 10^3/uL (4.0-10.0)
[2019-06-20 16:19] LABS: ALBUMIN 3.9 GM/DL (3.2-5.2); ALT/SGPT 41 U/L (12-78); BILIRUBIN,TOTAL 0.3 MG/DL (0.2-1.0); BLOOD UREA NITROGEN 16 MG/DL (7-18); CALCIUM LEVEL 9.1 MG/DL (8.8-10.2); CARBON DIOXIDE LEVEL 28 MEQ/L (21-32); CHLORIDE LEVEL 103 MEQ/L (98-107); CHOLESTEROL LEVEL 123 MG/DL (<200); CHOLESTEROL RISK RATIO 4.555 (<5); CREATININE FOR GFR 0.99 MG/DL (0.70-1.30); GLOMERULAR FILTRATION RATE > 60.0 (>49); GLUCOSE, FASTING 265 MG/DL (70-100); HDL CHOLESTEROL 27 MG/DL (>40); LDL CHOLESTEROL 44 MG/DL (<100); NON-HDL-C 96 MG/DL; POTASSIUM SERUM 4.5 MEQ/L (3.5-5.1); SODIUM LEVEL 135 MEQ/L (136-145); TOTAL PROTEIN 7.3 GM/DL (6.4-8.2); TRIGLYCERIDES LEVEL 259 MG/DL (<150)
[2019-06-20 16:20] LABS: HEMOGLOBIN A1c 8.9 %
[2019-06-20 16:31] LABS: TOTAL 25(OH) VITAMIN D 18.7 NG/ML (30.0-100.0)
== END ==
LOC: M LAB REF 15:03
PROVIDERS: ATTEND Nurse Practitioner Family
DX: E11.69 Type 2 diabetes mellitus with other specified complication (principal); I10 Essential (primary) hypertension

== ENCOUNTER → 2019-10-05 | Outpatient (REF) | payer MEDICARE, MEDICAID ==
[2019-10-05 13:18] LABS: BASO # 0.1 10^3/uL (0.0-0.2); BASO % 0.7 % (0.0-1.0); EOS # 0.2 10^3/uL (0.0-0.5); EOS % 2.6 % (0.0-3.0); HEMATOCRIT 47.2 % (42.0-52.0); HEMOGLOBIN 15.6 g/dl (13.5-17.5); LYMPH # 3.5 10^3/uL (1.5-5.0); LYMPH % 39.6 % (24.0-44.0); MEAN CORPUSCULAR HEMOGLOBIN 31.8 pg (27.0-33.0); MEAN CORPUSCULAR HGB CONC 33.1 g/dl (32.0-36.5); MEAN CORPUSCULAR VOLUME 96.3 fl (80.0-96.0); MONO # 0.6 10^3/uL (0.0-0.8); MONO % 6.9 % (0.0-5.0); NEUTROPHILS # 4.4 10^3/uL (1.5-8.5); NEUTROPHILS % 49.9 % (36.0-66.0); PLATELET COUNT, AUTOMATED 130 10^3/uL (150-450); WHITE BLOOD COUNT 8.9 10^3/uL (4.0-10.0)
[2019-10-05 13:31] LABS: ALBUMIN 4.3 GM/DL (3.2-5.2); ALT/SGPT 37 U/L (12-78); BILIRUBIN,TOTAL 0.3 MG/DL (0.2-1.0); BLOOD UREA NITROGEN 24 MG/DL (7-18); CALCIUM LEVEL 9.1 MG/DL (8.8-10.2); CARBON DIOXIDE LEVEL 26 MEQ/L (21-32); CHLORIDE LEVEL 102 MEQ/L (98-107); CHOLESTEROL LEVEL 106 MG/DL (<200); CHOLESTEROL RISK RATIO 4.416 (<5); GLOMERULAR FILTRATION RATE > 60.0 (>49); GLUCOSE, FASTING 286 MG/DL (70-100); HDL CHOLESTEROL 24 MG/DL (>40); LDL CHOLESTEROL 3 MG/DL (<100); NON-HDL-C 82 MG/DL; SODIUM LEVEL 135 MEQ/L (136-145); TOTAL PROTEIN 7.8 GM/DL (6.4-8.2); TRIGLYCERIDES LEVEL 396 MG/DL (<150)
[2019-10-05 13:36] LABS: TOTAL 25(OH) VITAMIN D 40.1 NG/ML (30.0-100.0)
== END ==
LOC: M LAB REF 12:38
PROVIDERS: ATTEND Nurse Practitioner Family
DX: I63.231 Cerebral infarction due to unspecified occlusion or stenosis of right carotid arteries (principal); I63.9 Cerebral infarction, unspecified; R93.1 Abnormal findings on diagnostic imaging of heart and coronary circulation; I10 Essential (primary) hypertension; E78.5 Hyperlipidemia, unspecified; E11.9 Type 2 diabetes mellitus without complications; E55.9 Vitamin D deficiency, unspecified; Z79.82 Long term (current) use of aspirin; Z79.84 Long term (current) use of oral hypoglycemic drugs

== ENCOUNTER → 2020-01-10 | Outpatient (REF) | payer MEDICARE, MEDICAID ==
[2020-01-10 12:55] LABS: BASO # 0.1 10^3/uL (0.0-0.2); BASO % 0.8 % (0.0-1.0); EOS # 0.4 10^3/uL (0.0-0.5); EOS % 4.5 % (0.0-3.0); HEMATOCRIT 43.5 % (42.0-52.0); HEMOGLOBIN 14.7 g/dl (13.5-17.5); LYMPH # 2.9 10^3/uL (1.5-5.0); LYMPH % 31.7 % (24.0-44.0); MEAN CORPUSCULAR HEMOGLOBIN 33.1 pg (27.0-33.0); MEAN CORPUSCULAR HGB CONC 33.8 g/dl (32.0-36.5); MONO # 0.6 10^3/uL (0.0-0.8); MONO % 6.5 % (0.0-5.0); NEUTROPHILS # 5.2 10^3/uL (1.5-8.5); NEUTROPHILS % 56.3 % (36.0-66.0); PLATELET COUNT, AUTOMATED 167 10^3/uL (150-450); RED BLOOD COUNT 4.44 10^6/uL (4.30-6.10); WHITE BLOOD COUNT 9.3 10^3/uL (4.0-10.0)
[2020-01-10 13:13] LABS: ALBUMIN 3.7 GM/DL (3.2-5.2); ALT/SGPT 34 U/L (12-78); BILIRUBIN,TOTAL 0.3 MG/DL (0.2-1.0); BLOOD UREA NITROGEN 11 MG/DL (7-18); CALCIUM LEVEL 8.9 MG/DL (8.8-10.2); CARBON DIOXIDE LEVEL 25 MEQ/L (21-32); CHLORIDE LEVEL 106 MEQ/L (98-107); CHOLESTEROL LEVEL 95 MG/DL (<200); CHOLESTEROL RISK RATIO 4.318 (<5); CREATININE FOR GFR 0.86 MG/DL (0.70-1.30); FOLATE 13.5 NG/ML (>5.4); GLOMERULAR FILTRATION RATE > 60.0 (>49); GLUCOSE, FASTING 192 MG/DL (70-100); HDL CHOLESTEROL 22 MG/DL (>40); LDL CHOLESTEROL 24 MG/DL (<100); NON-HDL-C 73 MG/DL; POTASSIUM SERUM 4.2 MEQ/L (3.5-5.1); SODIUM LEVEL 137 MEQ/L (136-145); TOTAL PROTEIN 6.8 GM/DL (6.4-8.2); TRIGLYCERIDES LEVEL 246 MG/DL (<150); VITAMIN B12 LEVEL 762 PG/ML (247-911)
[2020-01-10 13:19] LABS: HEMOGLOBIN A1c 8.6 %
== END ==
LOC: M LAB REF 12:24
PROVIDERS: ATTEND Nurse Practitioner Family
DX: E78.5 Hyperlipidemia, unspecified (principal); R25.2 Cramp and spasm; Z72.0 Tobacco use; Z68.26 Body mass index [BMI] 26.0-26.9, adult; E66.3 Overweight; I10 Essential (primary) hypertension; Z13.9 Encounter for screening, unspecified; F17.290 Nicotine dependence, other tobacco product, uncomplicated

== ENCOUNTER → 2020-02-13 | Outpatient (CLI) | payer MEDICARE, MEDICAID ==
--- NOTE | 2020-02-13 16:49 | REP ---
Clinical: Left lower extremity pain . Technique: Bernal scale and color Doppler evaluation using linear high frequency transducer. Findings: Ultrasound examination of the left lower extremity deep venous structures from the common femoral vein to the popliteal vein demonstrates normal compressibility flow and wave patterns in response to respiration and augmentation. There is no evidence for deep venous thrombosis. Impression: No evidence for deep venous thrombosis.
== END ==
LOC: M WHC 14:21
PROVIDERS: ATTEND Family Medicine Addiction Medicine
DX: M79.662 Pain in left lower leg (principal)

== ENCOUNTER → 2020-02-16 | Outpatient (CLI) | payer MEDICARE, MEDICAID ==
[2020-02-16 09:21] LABS: BLOOD UREA NITROGEN 14 MG/DL (7-18); CREATININE FOR GFR 0.96 MG/DL (0.70-1.30); GLOMERULAR FILTRATION RATE > 60.0 (>49)
== END ==
LOC: M LAB 08:28
PROVIDERS: ATTEND Neurological Surgery
DX: I65.21 Occlusion and stenosis of right carotid artery (principal)

== ENCOUNTER → 2020-04-19 | Outpatient (REF) | payer MEDICARE, MEDICAID ==
[2020-04-19 14:46] LABS: ALBUMIN 3.7 GM/DL (3.2-5.2); ALT/SGPT 43 U/L (12-78); BILIRUBIN,TOTAL 0.3 MG/DL (0.2-1.0); BLOOD UREA NITROGEN 17 MG/DL (7-18); CARBON DIOXIDE LEVEL 26 MEQ/L (21-32); CHLORIDE LEVEL 105 MEQ/L (98-107); CHOLESTEROL LEVEL 117 MG/DL (<200); CHOLESTEROL RISK RATIO 4.034 (<5); GLOMERULAR FILTRATION RATE > 60.0 (>49); GLUCOSE, FASTING 235 MG/DL (70-100); HDL CHOLESTEROL 29 MG/DL (>40); LDL CHOLESTEROL 40 MG/DL (<100); NON-HDL-C 88 MG/DL; POTASSIUM SERUM 4.4 MEQ/L (3.5-5.1); SODIUM LEVEL 137 MEQ/L (136-145); TOTAL PROTEIN 7.6 GM/DL (6.4-8.2); TRIGLYCERIDES LEVEL 240 MG/DL (<150)
[2020-04-19 16:00] LABS: HEMOGLOBIN A1c 9.4 %
== END ==
LOC: M LAB REF 12:12
PROVIDERS: ATTEND Family Medicine Addiction Medicine
DX: E11.9 Type 2 diabetes mellitus without complications (principal)

== ENCOUNTER → 2020-10-08 | Outpatient (REF) | payer MEDICARE ==
[2020-10-08 18:12] LABS: HEMOGLOBIN A1c 10.6 %
[2020-10-08 18:30] LABS: ALT/SGPT 41 U/L (12-78); BILIRUBIN,TOTAL 0.4 MG/DL (0.2-1.0); BLOOD UREA NITROGEN 18 MG/DL (7-18); CALCIUM LEVEL 9.1 MG/DL (8.8-10.2); CARBON DIOXIDE LEVEL 27 MEQ/L (21-32); CHLORIDE LEVEL 100 MEQ/L (98-107); CHOLESTEROL LEVEL 119 MG/DL (<200); CHOLESTEROL RISK RATIO 4.958 (<5); CREATININE FOR GFR 0.86 MG/DL (0.70-1.30); GLOMERULAR FILTRATION RATE > 60.0 (>49); GLUCOSE, FASTING 278 MG/DL (70-100); HDL CHOLESTEROL 24 MG/DL (>40); LDL CHOLESTEROL 23 MG/DL (<100); NON-HDL-C 95 MG/DL; POTASSIUM SERUM 4.4 MEQ/L (3.5-5.1); SODIUM LEVEL 135 MEQ/L (136-145); TOTAL PROTEIN 7.4 GM/DL (6.4-8.2); TRIGLYCERIDES LEVEL 358 MG/DL (<150)
== END ==
LOC: M LAB REF 17:07
PROVIDERS: ATTEND Family Medicine Addiction Medicine
DX: E11.69 Type 2 diabetes mellitus with other specified complication (principal)

== ENCOUNTER → 2021-12-19 | Outpatient (CLI) | payer MEDICARE, MEDICAID | LOC: M RAD 09:21 | PROVIDERS: ATTEND Nurse Practitioner Family | DX: Z12.2 Encounter for screening for malignant neoplasm of respiratory organs (principal); R91.8 Other nonspecific abnormal finding of lung field; F17.200 Nicotine dependence, unspecified, uncomplicated ==

== ENCOUNTER → 2022-05-28 | Outpatient (REF) | payer MEDICARE, MEDICAID ==
[2022-05-28 13:10] LABS: CREATININE, URINE 78.3 MG/DL; MALB URINE SIEMENS 6.8 MG/L; MAU/CREAT RATIO 8.6 MCG/MG (0.0-30.0)
[2022-05-28 17:21] LABS: ALBUMIN 3.9 GM/DL (3.2-5.2); ALT/SGPT 31 U/L (12-78); BILIRUBIN,TOTAL 0.3 MG/DL (0.2-1.0); BLOOD UREA NITROGEN 17 MG/DL (7-18); CARBON DIOXIDE LEVEL 26 MEQ/L (21-32); CHLORIDE LEVEL 105 MEQ/L (98-107); CHOLESTEROL LEVEL 130 MG/DL (<200); CREATININE FOR GFR 0.75 MG/DL (0.70-1.30); FREE T4 1.12 NG/DL (0.76-1.46); GLOMERULAR FILTRATION RATE > 60.0 (>49); GLUCOSE, FASTING 295 MG/DL (70-100); HDL CHOLESTEROL 25 MG/DL (>40); LDL CHOLESTEROL 48 MG/DL (<100); NON-HDL-C 105 MG/DL; POTASSIUM SERUM 4.2 MEQ/L (3.5-5.1); SODIUM LEVEL 138 MEQ/L (136-145); TOTAL PROTEIN 7.2 GM/DL (6.4-8.2); TRIGLYCERIDES LEVEL 287 MG/DL (<150)
[2022-05-28 17:53] LABS: TOTAL 25(OH) VITAMIN D 25.5 NG/ML (30.0-100.0)
== END ==
LOC: M LAB REF 11:49
PROVIDERS: ATTEND Nurse Practitioner Family
DX: E78.5 Hyperlipidemia, unspecified (principal); I10 Essential (primary) hypertension; E55.9 Vitamin D deficiency, unspecified; E11.8 Type 2 diabetes mellitus with unspecified complications; Z79.899 Other long term (current) drug therapy

== ENCOUNTER → 2022-08-27 | Outpatient (REF) | payer MEDICARE, MEDICAID ==
[2022-08-27 11:52] LABS: CREATININE, URINE 33.9 MG/DL; MALB URINE SIEMENS < 3.0 MG/DL; MAU/CREAT RATIO 8.8 MCG/MG (0.0-30.0)
[2022-08-27 12:56] LABS: LIPASE 21 U/L (12-53)
[2022-08-27 12:57] LABS: AMYLASE 61 U/L (30-118)
[2022-08-27 12:58] LABS: ALBUMIN 3.9 G/DL (3.2-5.2); ALKALINE PHOSPHATASE 183 U/L (46-116); ALT/SGPT 29 U/L (7.0-40); AST/SGOT 15 U/L (<34); BILIRUBIN,TOTAL 0.2 MG/DL (0.3-1.2); BLOOD UREA NITROGEN 16 MG/DL (9-23); CARBON DIOXIDE LEVEL 25 MMOL/L (20-31); CHLORIDE LEVEL 102 MMOL/L (98-107); CHOLESTEROL LEVEL 122 MG/DL (<200); CHOLESTEROL RISK RATIO 4.72 (<5); CREATININE FOR GFR 0.62 MG/DL (0.70-1.30); GLOMERULAR FILTRATION RATE > 60.0 (>49); GLUCOSE, FASTING 358 MG/DL (74-106); HDL CHOLESTEROL 25.8 MG/DL (>40); LDL CHOLESTEROL 39.4 MG/DL (<100); NON-HDL-C 96 MG/DL; POTASSIUM SERUM 4.4 MMOL/L (3.5-5.1); SODIUM LEVEL 134 MMOL/L (136-145); TRIGLYCERIDES LEVEL 284 MG/DL (<150)
== END ==
LOC: M LAB REF 10:34
PROVIDERS: ATTEND Nurse Practitioner Family
DX: E11.8 Type 2 diabetes mellitus with unspecified complications (principal); R74.8 Abnormal levels of other serum enzymes; E78.5 Hyperlipidemia, unspecified

== ENCOUNTER → 2022-10-02 | Outpatient (CLI) | payer MEDICARE, MEDICAID | LOC: M RAD 07:53 | PROVIDERS: ATTEND Nurse Practitioner Family | DX: K76.0 Fatty (change of) liver, not elsewhere classified (principal); N28.1 Cyst of kidney, acquired ==

== ENCOUNTER → 2022-11-09 | Outpatient (CLI) | payer MEDICARE, MEDICAID | LOC: M RAD 09:02 | PROVIDERS: ATTEND Nurse Practitioner Family | DX: M25.511 Pain in right shoulder (principal) ==

== ENCOUNTER → 2023-10-27 | Outpatient (REF) | payer MEDICARE, MEDICAID ==
[2023-10-27 14:21] LABS: HEMOGLOBIN A1c 10.6 % (4.0-6.0)
[2023-10-27 14:30] LABS: CREATININE, URINE 155.9 MG/DL; MAU/CREAT RATIO 5.1 MCG/MG (0.0-30.0)
[2023-10-27 14:36] LABS: ALBUMIN 3.9 G/DL (3.2-5.2); ALKALINE PHOSPHATASE 124 U/L (46-116); ALT/SGPT 31 U/L (7.0-40); AST/SGOT 16 U/L (<34); BILIRUBIN,TOTAL 0.5 MG/DL (0.3-1.2); BLOOD UREA NITROGEN 13 MG/DL (9-23); CALCIUM LEVEL 8.7 MG/DL (8.3-10.6); CARBON DIOXIDE LEVEL 28 MMOL/L (20-31); CHLORIDE LEVEL 102 MMOL/L (98-107); CHOLESTEROL LEVEL 90 MG/DL (<200); CREATININE FOR GFR 0.58 MG/DL (0.70-1.30); GLOMERULAR FILTRATION RATE > 60.0 (>49); GLUCOSE, FASTING 282 MG/DL (74-106); HDL CHOLESTEROL 27.2 MG/DL (>40); LDL CHOLESTEROL 30.6 MG/DL (<100); NON-HDL-C 62.8 MG/DL; POTASSIUM SERUM 4.5 MMOL/L (3.5-5.1); SODIUM LEVEL 134 MMOL/L (136-145); TRIGLYCERIDES LEVEL 161 MG/DL (<150)
== END ==
LOC: M LAB REF 12:53
PROVIDERS: ATTEND Nurse Practitioner Family
DX: E11.8 Type 2 diabetes mellitus with unspecified complications (principal); E78.5 Hyperlipidemia, unspecified; E78.41 Elevated Lipoprotein(a); E78.49 Other hyperlipidemia; E78.01 Familial hypercholesterolemia; E78.2 Mixed hyperlipidemia; E78.3 Hyperchylomicronemia

== ENCOUNTER → 2024-03-07 | Outpatient (CLI) | payer MEDICARE, MEDICAID | LOC: M RAD 14:33 | PROVIDERS: ATTEND Nurse Practitioner Family | DX: Z12.2 Encounter for screening for malignant neoplasm of respiratory organs (principal); F17.210 Nicotine dependence, cigarettes, uncomplicated ==

== ENCOUNTER → 2024-08-30 | Outpatient (REF) | payer MEDICARE, MEDICAID ==
[2024-08-30 13:04] LABS: BASO # 0.1 10^3/uL (0.0-0.2); BASO % 0.6 % (0.0-1.0); EOS # 0.2 10^3/uL (0.0-0.5); EOS % 2.4 % (0.0-3.0); HEMATOCRIT 48.2 % (42.0-52.0); HEMOGLOBIN 16.4 g/dl (13.5-17.5); LYMPH # 2.7 10^3/uL (1.5-5.0); LYMPH % 32.8 % (24.0-44.0); MEAN CORPUSCULAR HEMOGLOBIN 32.3 pg (27.0-33.0); MEAN CORPUSCULAR VOLUME 94.9 fl (80.0-96.0); MONO # 0.6 10^3/uL (0.0-0.8); MONO % 7.2 % (2.0-8.0); NEUTROPHILS # 4.7 10^3/uL (1.5-8.5); NEUTROPHILS % 56.8 % (36.0-66.0); PLATELET COUNT, AUTOMATED 158 10^3/uL (150-450); RED BLOOD COUNT 5.08 10^6/uL (4.30-6.10); WHITE BLOOD COUNT 8.2 10^3/uL (4.0-10.0)
[2024-08-30 13:06] LABS: ALBUMIN 4.1 G/DL (3.2-5.2); ALKALINE PHOSPHATASE 138 U/L (40-129); ALT/SGPT 37 U/L (7.0-40); AST/SGOT 18 U/L (<34); BILIRUBIN,TOTAL 0.6 MG/DL (0.3-1.2); BLOOD UREA NITROGEN 20 MG/DL (9-23); CALCIUM LEVEL 9.1 MG/DL (8.3-10.6); CARBON DIOXIDE LEVEL 28 MMOL/L (20-31); CHLORIDE LEVEL 101 MMOL/L (98-107); CHOLESTEROL LEVEL 165 MG/DL (<200); CHOLESTEROL RISK RATIO 5.76 (<5); CREATININE FOR GFR 0.62 MG/DL (0.70-1.30); GLOMERULAR FILTRATION RATE > 60.0 (>42); GLUCOSE, FASTING 267 MG/DL (74-106); HDL CHOLESTEROL 28.6 MG/DL (>40); LDL CHOLESTEROL 77.2 MG/DL (<100); MAGNESIUM LEVEL 1.9 MG/DL (1.8-2.4); NON-HDL-C 136.4 MG/DL; POTASSIUM SERUM 3.8 MMOL/L (3.5-5.1); SODIUM LEVEL 138 MMOL/L (136-145); TOTAL PROTEIN 7.4 G/DL (5.7-8.2); TRIGLYCERIDES LEVEL 296 MG/DL (<150)
[2024-08-30 13:07] LABS: TOTAL 25(OH) VITAMIN D 43.1 NG/ML (20.0-100.0)
[2024-08-30 13:32] LABS: HEMOGLOBIN A1c 9.4 % (4.0-6.0)
== END ==
LOC: M LAB REF 12:20
PROVIDERS: ATTEND Nurse Practitioner Family
DX: E78.5 Hyperlipidemia, unspecified (principal); E78.41 Elevated Lipoprotein(a); E78.49 Other hyperlipidemia; E78.1 Pure hyperglyceridemia; E78.00 Pure hypercholesterolemia, unspecified; E78.01 Familial hypercholesterolemia; E78.3 Hyperchylomicronemia; E11.8 Type 2 diabetes mellitus with unspecified complications; E55.9 Vitamin D deficiency, unspecified; I10 Essential (primary) hypertension

== ENCOUNTER → 2024-12-11 | Outpatient (REF) | payer MEDICARE, MEDICAID ==
[~2024-12-11] MED LIST changes: +TOPI-256 PO; -TOPI25TA10 PO
[2024-12-11 13:18] LABS: HEMOGLOBIN A1c 8.9 % (4.0-6.0)
[2024-12-11 13:29] LABS: ALBUMIN 3.9 G/DL (3.2-5.2); ALKALINE PHOSPHATASE 147 U/L (40-129); ALT/SGPT 21 U/L (7.0-40); AST/SGOT 15 U/L (<34); BILIRUBIN,TOTAL 0.3 MG/DL (0.3-1.2); BLOOD UREA NITROGEN 18 MG/DL (9-23); CALCIUM LEVEL 9.1 MG/DL (8.3-10.6); CARBON DIOXIDE LEVEL 26 MMOL/L (20-31); CHLORIDE LEVEL 104 MMOL/L (98-107); CHOLESTEROL LEVEL 99 MG/DL (<200); CHOLESTEROL RISK RATIO 3.79 (<5); CREATININE FOR GFR 0.56 MG/DL (0.70-1.30); GLOMERULAR FILTRATION RATE > 90.0 (>42); GLUCOSE, FASTING 295 MG/DL (74-106); HDL CHOLESTEROL 26.1 MG/DL (>40); LDL CHOLESTEROL 37.3 MG/DL (<100); NON-HDL-C 72.9 MG/DL; POTASSIUM SERUM 4.3 MMOL/L (3.5-5.1); SODIUM LEVEL 137 MMOL/L (136-145); TOTAL PROTEIN 6.8 G/DL (5.7-8.2); TRIGLYCERIDES LEVEL 178 MG/DL (<150)
== END ==
LOC: M LAB REF 12:16
PROVIDERS: ATTEND Nurse Practitioner Family
DX: E11.8 Type 2 diabetes mellitus with unspecified complications (principal); E78.01 Familial hypercholesterolemia; E78.3 Hyperchylomicronemia

== ENCOUNTER 2025-03-12 11:51 | Emergency (ER) | payer OTHER, MEDICARE, MEDICAID ==
[~2025-03-12] VITALS: Ht 172.7 cm; Wt 63.5 kg
[2025-03-12] MEDS: NAPROXEN 250 MG TAB PO ONE (13:05)
[2025-03-12] MEDS: NEOSPORIN OINT 0.9 GM PKT TOP ONE (13:06)
[2025-03-12 14:00] VITALS: BP 146/82; TEMP 98.5; O2SAT 95
== END 2025-03-12 14:12 | disposition home or self-care (01) ==
LOC: M ED 11:51 → EDBD 11:51 → M ED 14:12
DX: S00.83XA Contusion of other part of head, initial encounter (principal); S50.812A Abrasion of left forearm, initial encounter; V43.52XA Car driver injured in collision with other type car in traffic accident, initial encounter; Y92.9 Unspecified place or not applicable; Y93.9 Activity, unspecified; Y99.9 Unspecified external cause status; E11.9 Type 2 diabetes mellitus without complications; I10 Essential (primary) hypertension; E78.5 Hyperlipidemia, unspecified; K21.9 Gastro-esophageal reflux disease without esophagitis; F41.9 Anxiety disorder, unspecified; F31.9 Bipolar disorder, unspecified; F17.200 Nicotine dependence, unspecified, uncomplicated; F12.10 Cannabis abuse, uncomplicated; Z79.82 Long term (current) use of aspirin; Z79.84 Long term (current) use of oral hypoglycemic drugs; Z79.899 Other long term (current) drug therapy; Z88.0 Allergy status to penicillin; Z91.013 Allergy to seafood

== ENCOUNTER → 2025-03-12 | Outpatient (REF) | payer OTHER, MEDICARE, MEDICAID ==
[2025-03-12 15:37] LABS: ALT/SGPT 35 U/L (7.0-40); AST/SGOT 30 U/L (<34); CALCIUM LEVEL 8.7 MG/DL (8.3-10.6); CARBON DIOXIDE LEVEL 24 MMOL/L (20-31); CHLORIDE LEVEL 102 MMOL/L (98-107); CHOLESTEROL LEVEL 95 MG/DL (<200); CHOLESTEROL RISK RATIO 4.33 (<5); CREATININE FOR GFR 0.62 MG/DL (0.70-1.30); GLOMERULAR FILTRATION RATE > 90.0 (>42); LDL CHOLESTEROL 39.1 MG/DL (<100); NON-HDL-C 73.1 MG/DL; POTASSIUM SERUM 4.3 MMOL/L (3.5-5.1); SODIUM LEVEL 138 MMOL/L (136-145); TRIGLYCERIDES LEVEL 170 MG/DL (<150)
[2025-03-12 15:40] LABS: ESTIMATED AVERAGE GLUCOSE 200.0 MG/DL (60-110)
== END ==
LOC: M LAB REF 14:24
PROVIDERS: ATTEND Nurse Practitioner Family
DX: E11.8 Type 2 diabetes mellitus with unspecified complications (principal); E78.5 Hyperlipidemia, unspecified

== ENCOUNTER → 2025-07-04 | Outpatient (REF) | payer MEDICARE, MEDICAID ==
[2025-07-04 15:23] LABS: BASO # 0.0 10^3/uL (0.0-0.2); BASO % 0.6 % (0.0-1.0); EOS # 0.0 10^3/uL (0.0-0.5); EOS % 0.5 % (0.0-3.0); LYMPH # 2.2 10^3/uL (1.5-5.0); LYMPH % 35.0 % (24.0-44.0); MONO # 1.0 10^3/uL (0.0-0.8); MONO % 15.8 % (2.0-8.0); NEUTROPHILS # 3.0 10^3/uL (1.5-8.5); NEUTROPHILS % 47.9 % (36.0-66.0); PLATELET COUNT, AUTOMATED 155 10^3/uL (150-450)
[2025-07-04 15:30] LABS: ESTIMATED AVERAGE GLUCOSE 223.0 MG/DL (60-110)
[2025-07-04 15:41] LABS: CALCIUM LEVEL 9.4 MG/DL (8.3-10.6); CARBON DIOXIDE LEVEL 28 MMOL/L (20-31); CHLORIDE LEVEL 100 MMOL/L (98-107); CHOLESTEROL LEVEL 112 MG/DL (<200); CHOLESTEROL RISK RATIO 4.59 (<5); CREATININE FOR GFR 0.77 MG/DL (0.70-1.30); GLOMERULAR FILTRATION RATE > 90.0 (>42); LDL CHOLESTEROL 53.8 MG/DL (<100); NON-HDL-C 87.6 MG/DL; POTASSIUM SERUM 4.1 MMOL/L (3.5-5.1); SODIUM LEVEL 136 MMOL/L (136-145); TRIGLYCERIDES LEVEL 169 MG/DL (<150)
== END ==
LOC: M LAB REF 14:42
PROVIDERS: ATTEND Nurse Practitioner Family
DX: R11.0 Nausea (principal); E11.69 Type 2 diabetes mellitus with other specified complication; E78.1 Pure hyperglyceridemia; R63.4 Abnormal weight loss

== ENCOUNTER → 2025-07-17 | Outpatient (CLI) | payer MEDICARE, MEDICAID | LOC: M RAD 08:28 | PROVIDERS: ATTEND Nurse Practitioner Family | DX: F17.210 Nicotine dependence, cigarettes, uncomplicated (principal) ==

== ENCOUNTER → 2025-07-19 | Outpatient (CLI) | payer MEDICARE, MEDICAID ==
[~2025-07-19] MED LIST changes: +ISOVUE-370 76% 100 ML VIAL As Ordered ONE
== END ==
LOC: M RAD 08:37
PROVIDERS: ATTEND Physician Assistant
DX: R63.4 Abnormal weight loss (principal); R11.2 Nausea with vomiting, unspecified; J43.2 Centrilobular emphysema; N40.0 Benign prostatic hyperplasia without lower urinary tract symptoms; R59.0 Localized enlarged lymph nodes
CPT/HCPCS: 74177; Q9967

== ENCOUNTER → 2025-08-02 | Outpatient (CLI) | payer MEDICARE, MEDICAID ==
[~2025-08-02] MED LIST changes: -ISOVUE-370 76% 100 ML VIAL As Ordered ONE
== END ==
LOC: M RAD 08:25
PROVIDERS: ATTEND Nurse Practitioner Family
DX: Z13.6 Encounter for screening for cardiovascular disorders (principal); I70.0 Atherosclerosis of aorta